=== PATIENT | female | born 1995 | race Caucasian/White ===

== ENCOUNTER 2016-09-14 17:20 | Emergency (ER) | payer OTHER ==
[2016-09-14] MEDS ORDERED: GI COCKTAIL 50ML BTL(HYOSCYAMINE/MAALOX/LIDOCAINE VISCOUS)(1:3:1) As Ordered ONE (18:04)
[2016-09-14 18:22] LABS: BASO % 0.2 % (0.0-1.0); EOS # 0.1 K/mm3 (0.0-0.50); EOS % 0.5 % (0.0-3.0); LARGE UNSTAINED CELL # 0.1 K/mm3 (0.0-0.4); LARGE UNSTAINED CELL % 0.9 % (0.0-4.0); LYMPH # 0.5 K/mm3 (1.5-6.5); LYMPH % 4.2 % (24.0-44.0); MEAN CORPUSCULAR HEMOGLOBIN 30.5 pg (27.0-33.0); MEAN CORPUSCULAR HGB CONC 35.1 g/dl (32.0-36.5); MONO # 0.5 K/mm3 (0.0-0.8); MONO % 3.9 % (0.0-5.0); NEUTROPHILS # 11.6 K/mm3 (1.8-7.7); NEUTROPHILS % 90.2 % (36.0-66.0); PLATELET COUNT, AUTOMATED 295 k/mm3 (150-450); RED CELL DISTRIBUTION WIDTH 11.7 % (11.5-14.5); WHITE BLOOD COUNT 12.8 K/mm3 (4.0-10.0)
--- NOTE | 2016-09-14 18:41 | REP ---
Chest x-ray: Two views: History: Central chest pain. Epigastric pain. No comparison studies. Findings: The lungs are well inflated and clear. Pleural angles are sharp. Heart size is normal. Pulmonary vasculature is not increased. There is a right cervical rib noted incidentally. No other bony abnormality is seen. Impression: Cervical rib noted on the right. Otherwise negative chest x-ray. Signed by Arjun Mishra MD 09/14/2016 07:28 P
[2016-09-14 18:44] LABS: ALBUMIN 4.6 GM/DL (3.2-5.2); ALBUMIN/GLOBULIN RATIO 1.28 (1.00-1.93); ALKALINE PHOSPHATASE 66 U/L (45-117); ALT/SGPT 35 U/L (12-78); ANION GAP 12 MEQ/L (8-16); AST/SGOT 20 U/L (15-37); BILIRUBIN,DIRECT 0.2 MG/DL (0.0-0.2); BILIRUBIN,TOTAL 0.8 MG/DL (0.2-1.0); BLOOD UREA NITROGEN 20 MG/DL (7-18); CALCIUM LEVEL 9.5 MG/DL (8.5-10.1); CARBON DIOXIDE LEVEL 23 MEQ/L (21-32); CHLORIDE LEVEL 105 MEQ/L (98-107); CREATININE FOR GFR 0.79 MG/DL (0.55-1.02); GLUCOSE, FASTING 91 MG/DL (70-105); SODIUM LEVEL 140 MEQ/L (136-145); TOTAL PROTEIN 8.2 GM/DL (6.4-8.2)
--- NOTE | 2016-09-14 19:08 | EDDOCDS ---
Nurse's Notes [facility] Name: Sandra Olson Age: 20 yrs Sex: Female : 1995 Arrival Date: 09/14/2016 Time: 17:20 Bed TR8 Private MD: NO PRIMARY PHYSICIAN, . Diagnosis: Other chest pain-reproducible Presentation: 09/14 17:25 Presenting complaint: Patient states: Chest pain for past several months. Today started ld5 feeling worse and reports tingling to hands and feet. Adult Sepsis Screening: The patient does not have new or worsening altered mentation. Patient's respiratory rate is less than 22. Systolic blood pressure is greater than 100. Patient has a qSOFA score of 0- Negative Sepsis Screen. Suicide/Homicide risk assessment- the patient denies having any suicidal and/or homicidal ideations and does not present with any other emotional, behavioral or mental health complaints. Status: Patient is not a policy service coordinator or dependent. Transition of care: patient was not received from another setting of care. 17:25 Acuity: SERA Level 3 ld5 17:25 Method Of Arrival: Walkin/Carried/Asstd ld5 Triage Assessment: 17:27 General: Appears in no apparent distress. Pain: Location: anterior aspect of left upper ld5 chest and left breast Pain currently is 4 out of 10 on a pain scale. At worst was 6 out of 10 on a pain scale. Is prior to today pt was experiencing sudden onset of the left-sided chest pain. Today pain became more constant. HIV screening NA for this visit Offered previously. Neurological: Level of Consciousness is awake, alert, Reports tingling to hands and feet. Respiratory: Airway is patent Respiratory effort is even, unlabored. 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 none - PMHx: none; - PSHx: wisdom teeth removed; - Social history: Smoking status: Patient states was never smoker of tobacco. No barriers to communication noted, The patient speaks fluent Nepali, Speaks appropriately for age. - Family history: Not pertinent. - : The pt / caregiver states he / she is not on anticoagulants. Home medication list is obtained from the patient. - Exposure Risk Screening:: None identified. Screenin:05 Screening information is obtained from the patient. Fall risk: No risks identified. cz Assistance ADL's: requires no assistance with activities of daily living. Abuse/DV Screen: The patient / caregiver reports he/she is: not in a situation that causes fear, pain or injury. Nutritional screening: No deficits noted. Advance Directives: Currently, there is no health care proxy. There is no active DNR order. There is no living will. There is no Power of Oxygraph Operator. Advance directive information has not previously been placed in an [facility] medical record. Further advance directive information is declined. home support is adequate. Assessment: 19:05 Reassessment: Patient appears in no apparent distress at this time. Patient states cz feeling better. Vital Signs: 17:22 BP 133 / 80; Pulse 124; Resp 20; Temp 96.7; Pulse Ox 100% ; Weight 63.5 kg; Height 5 elp ft. 1 in. (154.94 cm); Pain 3/10; 19:07 BP 105 / 64; Pulse 94; Resp 16; Temp 99.2(T); Pulse Ox 95% on R/A; cz 17:22 Body Mass Index 26.45 (63.50 kg, 154.94 cm) [facility] Vitals: 17:22 Log In Time: September 14, 2016 at 17:20. [facility] ED Course: 17:22 Patient visited by Melany Gould PCA. elp 17:22 NO PRIMARY PHYSICIAN, . is Private Physician. elp 17:22 Patient moved to Waiting elp 17:23 Patient visited by Melany Gould PCA. elp 17:23 Patient moved to Pre RCE elp 17:27 Triage Initiated ld5 17:29 Patient visited by Kiki Herr RN. ld5 17:29 Patient moved to Triage 2 ld5 17:34 [facility] Wil[facility] ar2 17:34 James Flood MD is Attending Physician. ar2 17:43 Patient visited by Alcira Hoffman PCA. jb5 17:43 EKG done. (by ED staff). Reviewed by Dorian Wilkinson PA-C. jb5 17:48 Patient visited by Dorian Wilkinson PA-C. ar2 18:10 Patient moved to TR1 jb5 18:10 Troponin Sent. jb5 18:10 D-Dimer Quant Sent. jb5 18:10 Lipase Sent. jb5 18:10 Liver Profile Sent. jb5 18:10 MED Profile Sent. jb5 18:10 CBC with Diff Sent. jb5 18:35 Patient name changed from Sandra\S\\S\Wesley\S\ to Sandra\S\ \S\Wesley. EDMS 18:36 [facility] Payment Agreement was scanned into [employer] and attached to record. zo 18:49 Patient moved to PR cjh 18:57 [facility] is Referral Physician. ar2 19:04 Patient moved to TR8 cz 19:05 The patient / caregiver is instructed regarding the plan of care and ED course. cz 19:05 No IV's were initiated during this patient's visit. No procedures done that require cz assistance. Administered Medications: 18:07 Drug: GI Cocktail - (Alum-Mag Hydroxide-Simeth Suspension 225 mg-200 mg-25 mg/5 mL 30 ml6 ml, Lidocaine Liquid 2 % 10 ml, Hyoscyamine Liquid 10 ml) Route: PO; Order Results: Lab Order: CBC with Diff; SPEC'M 09/14/16 18:09 Test: WHITE BLOOD COUNT; Value: 12.8; Range: 4.0-10.0; Abnormal: Above high normal; Units: K/mm3; Status: F Test: RED BLOOD COUNT; Value: 4.97; Range: 4.00-5.40; Units: M/mm3; Status: F Test: HEMOGLOBIN; Value: 15.2; Range: 12.0-16.0; Units: g/dl; Status: F Test: HEMATOCRIT; Value: 43.2; Range: 36.0-47.0; Units: %; Status: F Test: MEAN CORPUSCULAR VOLUME; Value: 87.0; Range: 80.0-96.0; Units: fl; Status: F Test: MEAN CORPUSCULAR HEMOGLOBIN; Value: 30.5; Range: 27.0-33.0; Units: pg; Status: F Test: MEAN CORPUSCULAR HGB CONC; Value: 35.1; Range: 32.0-36.5; Units: g/dl; Status: F Test: RED CELL DISTRIBUTION WIDTH; Value: 11.7; Range: 11.5-14.5; Units: %; Status: F Test: PLATELET COUNT, AUTOMATED; Value: 295; Range: 150-450; Units: k/mm3; Status: F Test: NEUTROPHILS %; Value: 90.2; Range: 36.0-66.0; Abnormal: Above high normal; Units: %; Status: F Test: LYMPH %; Value: 4.2; Range: 24.0-44.0; Abnormal: Below low normal; Units: %; Status: F Test: MONO %; Value: 3.9; Range: 0.0-5.0; Units: %; Status: F Test: EOS %; Value: 0.5; Range: 0.0-3.0; Units: %; Status: F Test: BASO %; Value: 0.2; Range: 0.0-1.0; Units: %; Status: F Test: LARGE UNSTAINED CELL %; Value: 0.9; Range: 0.0-4.0; Units: %; Status: F Test: NEUTROPHILS #; Value: 11.6; Range: 1.8-7.7; Abnormal: Above high normal; Units: K/mm3; Status: F Test: LYMPH #; Value: 0.5; Range: 1.5-6.5; Abnormal: Below low normal; Units: K/mm3; Status: F Test: MONO #; Value: 0.5; Range: 0.0-0.8; Units: K/mm3; Status: F Test: EOS #; Value: 0.1; Range: 0.0-0.50; Units: K/mm3; Status: F Test: BASO #; Value: 0.0; Range: 0.0-0.2; Units: K/mm3; Status: F Test: LARGE UNSTAINED CELL #; Value: 0.1; Range: 0.0-0.4; Units: K/mm3; Status: F Lab Order: [facility] Profile; [facility] 09/14/16 18:10 Test: GLUCOSE, FASTING; Value: 91; Range: 70-105; Units: MG/DL; Status: F Test: BLOOD UREA NITROGEN; Value: 20; Range: 7-18; Abnormal: Above high normal; Units: MG/DL; Status: F Test: CREATININE FOR GFR; Value: 0.79; Range: 0.55-1.02; Units: MG/DL; Status: F Test: SODIUM LEVEL; Value: 140; Range: 136-145; Units: MEQ/L; Status: F Test: POTASSIUM SERUM; Value: 4.0; Range: 3.5-5.1; Units: MEQ/L; Status: F Test: CHLORIDE LEVEL; Value: 105; Range: 98-107; Units: MEQ/L; Status: F Test: CARBON DIOXIDE LEVEL; Value: 23; Range: 21-32; Units: MEQ/L; Status: F Test: ANION GAP; Value: 12; Range: 8-16; Units: MEQ/L; Status: F Test: CALCIUM LEVEL; Value: 9.5; Range: 8.5-10.1; Units: MG/DL; Status: F Lab Order: Liver Profile; 09/14/16 18:10 Test: AST/SGOT; Value: 20; Range: 15-37; Units: U/L; Status: F Test: ALT/SGPT; Value: 35; Range: 12-78; Units: U/L; Status: F Test: ALKALINE PHOSPHATASE; Value: 66; Range: 45-117; Units: U/L; Status: F Test: BILIRUBIN,TOTAL; Value: 0.8; Range: 0.2-1.0; Units: MG/DL; Status: F Test: BILIRUBIN,DIRECT; Value: 0.2; Range: 0.0-0.2; Units: MG/DL; Status: F Test: TOTAL PROTEIN; Value: 8.2; Range: 6.4-8.2; Units: GM/DL; Status: F Test: ALBUMIN; Value: 4.6; Range: 3.2-5.2; Units: GM/DL; Status: F Test: ALBUMIN/GLOBULIN RATIO; Value: 1.28; Range: 1.00-1.93; Status: F Lab Order: Lipase; '09/14/16 18:10 Test: LIPASE; Value: 153; Range: 73-393; Units: U/L; Status: F Lab Order: D-Dimer Quant; 09/14/16 18:09 Test: D-DIMER QUANT; Value: < 270.0; Range: <500; Units: ng/ml; Status: F Lab Order: Troponin; 09/14/16 18:10 Test: TROPONIN I; Value: < 0.02; Range: < 0.10; Units: NG/ML; Status: F Test Note: ; Troponin I Reference Interval for Six Degrees Group LOCI: 99th Percentile= 0.00-0.045 ng/ml Risk Stratification: <= 0.10 ng/ml Decreased Risk for Adverse Clinical Events. 0.10-1.50 ng/ml Increased Risk for Adverse Clinical Events. Evaluation of additional criterion and/or repeat testing in 2-6 hours is suggested to rule out myocardial damage. >= 1.50 ng/ml Indicative of Myocardial Injury. Outcome: 18:58 Discharge ordered by Provider. ar2 19:05 Discharge Assessment: Patient awake, alert and oriented x 3. No cognitive and/or cz functional deficits noted. Patient verbalized understanding of disposition instructions. patient administered narcotics - no. The following High Risk Discharge criteria are identified: None. Discharged to home ambulatory. Condition: stable. Discharge instructions given to patient, Instructed on discharge instructions, follow up and referral plans. medication usage, Demonstrated understanding of instructions, medications, Pt was receptive of discharge instructions/ teaching. Prescriptions given X 2. No special radiology studies were completed. Property :Personal belongings accompany Pt. 19:07 Patient left the ED. cz Signatures: Dispatcher [employer] EDMS Rene Paz, OUMAR RN cz Alcira Hoffman, CERTIFIED HYPERBARIC TECHNICIAN CERTIFIED HYPERBARIC TECHNICIAN jb5 Vinod Caceres Aaron, PARemigio PA-C ar2 Valentin Conklin RN RN ml6 Kiki Herr RN RN ld5 Gi Sands,OUMAR RN [facility] Melany Gould, CERTIFIED HYPERBARIC TECHNICIAN CERTIFIED HYPERBARIC TECHNICIAN elp MTDD
--- NOTE | 2016-09-14 19:08 | EDDOCDS ---
Physician Documentation [facility] Name: Sandra Olson Age: 20 yrs Sex: Female : 1995 Arrival Date: 09/14/2016 Time: 17:20 Bed TR8 Private MD: NO PRIMARY PHYSICIAN, . Disposition: 09/14/16 18:58 Discharged to Home/Self Care. Impression: Other chest pain - reproducible. - Condition is Stable. - Discharge Instructions: Nonspecific Chest Pain. - Prescriptions for Naprosyn 500 mg Oral Tablet - take 1 tablet by ORAL route 2 times per day take with food; 30 tablet. Prilosec 20 mg Oral Capsule - take 1 capsule by ORAL route once daily; 10 capsule. - Medication Reconciliation, Local Pharmacy Hours form. - Follow up: [facility]; When: Call to arrange an appointment; Reason: Recheck today's complaints, To establish care. Follow up: Emergency Department; When: As needed; Reason: Trouble breathing, Worsening of conditions. - Problem is new. - Symptoms have improved. Historical: - Allergies: oranges; - Home Meds: 1. none - PMHx: none; - PSHx: wisdom teeth removed; - Social history: Smoking status: Patient states was never smoker of tobacco. No barriers to communication noted, The patient speaks fluent Czech, Speaks appropriately for age. - Family history: Not pertinent. - : The pt / caregiver states he / she is not on anticoagulants. Home medication list is obtained from the patient. - Exposure Risk Screening:: None identified. 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 1 in. (154.94 cm); Pain 3/10; 19:07 BP 105 / 64; Pulse 94; Resp 16; Temp 99.2(T); Pulse Ox 95% on R/A; cz 17:22 Body Mass Index 26.45 (63.50 kg, 154.94 cm) elp MDM: 17:35 ECG WITH READING ER PHYS+CARDIAG ordered. EDMS 17:56 GI Cocktail - (Alum-Mag Hydroxide-Simeth 30 ml, Lidocaine 10 ml, Hyoscyamine 10 ml) PO ar2 once; Pre-mixed 50mL unit dose ordered. 17:57 Chest, 2 View (pa\E\lat) Ordered. EDMS 17:57 CBC with Diff Ordered. EDMS 17:57 MED Profile Ordered. EDMS 17:57 Liver Profile Ordered. EDMS 17:57 Lipase Ordered. EDMS 17:57 D-Dimer Quant Ordered. EDMS 17:57 Troponin Ordered. EDMS 18:31 Financial registration complete. zo 18:36 [facility] Payment Agreement was scanned into [employer] and attached to record. zo 18:51 CBC with Diff Reviewed. ar2 18:51 MED Profile Reviewed. ar2 18:51 Liver Profile Reviewed. ar2 18:51 Lipase Reviewed. ar2 18:51 D-Dimer Quant Reviewed. ar2 18:51 Troponin Reviewed. ar2 Administered Medications: 18:07 Drug: GI Cocktail - (Alum-Mag Hydroxide-Simeth Suspension 225 mg-200 mg-25 mg/5 mL 30 ml6 ml, Lidocaine Liquid 2 % 10 ml, Hyoscyamine Liquid 10 ml) Route: PO; Signatures: Dispatcher [employer] EDMS Rene Paz, OUMAR RN cz Vinod Caceres Aaron, PADarlinC PA-C ar2 Kiki Herr,RN RN ld5 Valentin Conklin RN ml6 The chart was reviewed and I authenticate all verbal orders and agree with the evaluation and treatment provided.Attachments: 18:36 [facility] Payment Agreement zo MTDD
--- NOTE | 2016-09-15 08:37 | ECGEPIP ---
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 Order Number: [id number] Reading MD: Chiquita Vidal Measurements Intervals [place] Rate: 101 P: 69 WV: 133 QRS: 72 QRSD: 70 T: 56 QT: 319 QTc: 415 Interpretive Statements SINUS TACHYCARDIA NONSPECIFIC T-WAVE ABNORMALITY ABNORMAL RHYTHM ECG NO PRIOR FOR COMPARISON Electronically Signed On 09-15-2016 8:36:56 EST by Chiquita Vidal
--- NOTE | 2016-09-18 09:44 | EDDOCDS ---
Nurse's Notes [facility] Name: Cathy Mandujano Age: 20 yrs Sex: Female : 1995 Arrival Date: 09/14/2016 Time: 17:20 Bed TR8 Private MD: NO PRIMARY PHYSICIAN, . Diagnosis: Other chest pain-reproducible Presentation: 09/14 17:25 Presenting complaint: Patient states: Chest pain for past several months. Today started ld5 feeling worse and reports tingling to hands and feet. Adult Sepsis Screening: The patient does not have new or worsening altered mentation. Patient's respiratory rate is less than 22. Systolic blood pressure is greater than 100. Patient has a qSOFA score of 0- Negative Sepsis Screen. Suicide/Homicide risk assessment- the patient denies having any suicidal and/or homicidal ideations and does not present with any other emotional, behavioral or mental health complaints. 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 Transition of care: patient was not received from another setting of care. 17:25 Acuity: SERA Level 3 ld5 17:25 Method Of Arrival: Walkin/Carried/Asstd ld5 Triage Assessment: 17:27 General: Appears in no apparent distress. Pain: Location: anterior aspect of left upper ld5 chest and left breast Pain currently is 4 out of 10 on a pain scale. At worst was 6 out of 10 on a pain scale. Is prior to today pt was experiencing sudden onset of the left-sided chest pain. Today pain became more constant. HIV screening NA for this visit Offered previously. Neurological: Level of Consciousness is awake, alert, Reports tingling to hands and feet. Respiratory: Airway is patent Respiratory effort is even, unlabored. 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 none - PMHx: none; - PSHx: wisdom teeth removed; - Social history: Smoking status: Patient states was never smoker of tobacco. No barriers to communication noted, The patient speaks fluent Urdu, Speaks appropriately for age. - Family history: Not pertinent. - : The pt / caregiver states he / she is not on anticoagulants. Home medication list is obtained from the patient. - Exposure Risk Screening:: None identified. Screenin:05 Screening information is obtained from the patient. Fall risk: No risks identified. cz Assistance ADL's: requires no assistance with activities of daily living. Abuse/DV Screen: The patient / caregiver reports he/she is: not in a situation that causes fear, pain or injury. Nutritional screening: No deficits noted. Advance Directives: Currently, there is no health care proxy. There is no active DNR order. There is no living will. There is no Power of Die Maker Bench Stamping. Advance directive information has not previously been placed in an [facility] medical record. Further advance directive information is declined. home support is adequate. Assessment: 19:05 Reassessment: Patient appears in no apparent distress at this time. Patient states cz feeling better. Vital Signs: 17:22 BP 133 / 80; Pulse 124; Resp 20; Temp 96.7; Pulse Ox 100% ; Weight 63.5 kg; Height 5 elp ft. 1 in. (154.94 cm); Pain 3/10; 19:07 BP 105 / 64; Pulse 94; Resp 16; Temp 99.2(T); Pulse Ox 95% on R/A; cz 17:22 Body Mass Index 26.45 (63.50 kg, 154.94 cm) [facility] Vitals: 17:22 Log In Time: September 14, 2016 at 17:20. [facility] ED Course: 17:22 Patient visited by Melany Gould PCA. elp 17:22 NO PRIMARY PHYSICIAN, . is Private Physician. elp 17:22 Patient moved to Waiting elp 17:23 Patient visited by Melany Gould PCA. elp 17:23 Patient moved to Pre RCE elp 17:27 Triage Initiated ld5 17:29 Patient visited by Kiki Herr RN. ld5 17:29 Patient moved to Triage 2 ld5 17:34 [facility] ar2 17:34 James Flood MD is Attending Physician. ar2 17:43 Patient visited by Alcira Hoffman PCA. jb5 17:43 EKG done. (by ED staff). Reviewed by Ankit Orellana PA-C. jb5 17:48 Patient visited by Ankit Orellana PA-C. ar2 18:10 Patient moved to TR1 jb5 18:10 Troponin Sent. jb5 18:10 D-Dimer Quant Sent. jb5 18:10 Lipase Sent. jb5 18:10 Liver Profile Sent. jb5 18:10 MED Profile Sent. jb5 18:10 CBC with Diff Sent. jb5 18:35 Patient name changed from Cathy\S\\S\Wesley\S\ to Cathy\S\ \S\Wesley. EDMS 18:36 [place] [place] was scanned into eigital and attached to record. zo 18:49 Patient moved to PR1 / 25 cjh 18:57 [facility] is Referral Physician. ar2 19:04 Patient moved to TR8 cz 19:05 The patient / caregiver is instructed regarding the plan of care and ED course. cz 19:05 No IV's were initiated during this patient's visit. No procedures done that require cz assistance. 19:28 Chest, 2 View (pa\E\lat) Returned. EDMS 07 08:39 EKG-ADULT Returned. EDMS 08:41 T-Sheet-- Draft Copy was scanned into eigital and attached to record. [facility] 12:37 ECG/EKG was scanned into eigital and attached to record. gb 12:37 Radiology Report was scanned into eigital and attached to record. gb Administered Medications: 09/14 18:07 Drug: GI Cocktail - (Alum-Mag Hydroxide-Simeth Suspension 225 mg-200 mg-25 mg/5 mL 30 ml6 ml, Lidocaine Liquid 2 % 10 ml, Hyoscyamine Liquid 10 ml) Route: PO; Order Results: Lab Order: CBC with Diff; SPEC'M 09/14/16 18:09 Test: WHITE BLOOD COUNT; Value: 12.8; Range: 4.0-10.0; Abnormal: Above high normal; Units: K/mm3; Status: F Test: RED BLOOD COUNT; Value: 4.97; Range: 4.00-5.40; Units: M/mm3; Status: F Test: HEMOGLOBIN; Value: 15.2; Range: 12.0-16.0; Units: g/dl; Status: F Test: HEMATOCRIT; Value: 43.2; Range: 36.0-47.0; Units: %; Status: F Test: MEAN CORPUSCULAR VOLUME; Value: 87.0; Range: 80.0-96.0; Units: fl; Status: F Test: MEAN CORPUSCULAR HEMOGLOBIN; Value: 30.5; Range: 27.0-33.0; Units: pg; Status: F Test: MEAN CORPUSCULAR HGB CONC; Value: 35.1; Range: 32.0-36.5; Units: g/dl; Status: F Test: RED CELL DISTRIBUTION WIDTH; Value: 11.7; Range: 11.5-14.5; Units: %; Status: F Test: PLATELET COUNT, AUTOMATED; Value: 295; Range: 150-450; Units: k/mm3; Status: F Test: NEUTROPHILS %; Value: 90.2; Range: 36.0-66.0; Abnormal: Above high normal; Units: %; Status: F Test: LYMPH %; Value: 4.2; Range: 24.0-44.0; Abnormal: Below low normal; Units: %; Status: F Test: MONO %; Value: 3.9; Range: 0.0-5.0; Units: %; Status: F Test: EOS %; Value: 0.5; Range: 0.0-3.0; Units: %; Status: F Test: BASO %; Value: 0.2; Range: 0.0-1.0; Units: %; Status: F Test: LARGE UNSTAINED CELL %; Value: 0.9; Range: 0.0-4.0; Units: %; Status: F Test: NEUTROPHILS #; Value: 11.6; Range: 1.8-7.7; Abnormal: Above high normal; Units: K/mm3; Status: F Test: LYMPH #; Value: 0.5; Range: 1.5-6.5; Abnormal: Below low normal; Units: K/mm3; Status: F Test: MONO #; Value: 0.5; Range: 0.0-0.8; Units: K/mm3; Status: F Test: EOS #; Value: 0.1; Range: 0.0-0.50; Units: K/mm3; Status: F Test: BASO #; Value: 0.0; Range: 0.0-0.2; Units: K/mm3; Status: F Test: LARGE UNSTAINED CELL #; Value: 0.1; Range: 0.0-0.4; Units: K/mm3; Status: F Lab Order: MED Profile; SPEC'M 09/14/16 18:10 Test: GLUCOSE, FASTING; Value: 91; Range: 70-105; Units: MG/DL; Status: F Test: BLOOD UREA NITROGEN; Value: 20; Range: 7-18; Abnormal: Above high normal; Units: MG/DL; Status: F Test: CREATININE FOR GFR; Value: 0.79; Range: 0.55-1.02; Units: MG/DL; Status: F Test: SODIUM LEVEL; Value: 140; Range: 136-145; Units: MEQ/L; Status: F Test: POTASSIUM SERUM; Value: 4.0; Range: 3.5-5.1; Units: MEQ/L; Status: F Test: CHLORIDE LEVEL; Value: 105; Range: 98-107; Units: MEQ/L; Status: F Test: CARBON DIOXIDE LEVEL; Value: 23; Range: 21-32; Units: MEQ/L; Status: F Test: ANION GAP; Value: 12; Range: 8-16; Units: MEQ/L; Status: F Test: CALCIUM LEVEL; Value: 9.5; Range: 8.5-10.1; Units: MG/DL; Status: F Lab Order: Liver Profile; [facility] 09/14/16 18:10 Test: AST/SGOT; Value: 20; Range: 15-37; Units: U/L; Status: F Test: ALT/SGPT; Value: 35; Range: 12-78; Units: U/L; Status: F Test: ALKALINE PHOSPHATASE; Value: 66; Range: 45-117; Units: U/L; Status: F Test: BILIRUBIN,TOTAL; Value: 0.8; Range: 0.2-1.0; Units: MG/DL; Status: F Test: BILIRUBIN,DIRECT; Value: 0.2; Range: 0.0-0.2; Units: MG/DL; Status: F Test: TOTAL PROTEIN; Value: 8.2; Range: 6.4-8.2; Units: GM/DL; Status: F Test: ALBUMIN; Value: 4.6; Range: 3.2-5.2; Units: GM/DL; Status: F Test: ALBUMIN/GLOBULIN RATIO; Value: 1.28; Range: 1.00-1.93; Status: F Lab Order: Lipase; [facility] 09/14/16 18:10 Test: LIPASE; Value: 153; Range: 73-393; Units: U/L; Status: F Lab Order: D-Dimer Quant; SPEC'M 09/14/16 18:09 Test: D-DIMER QUANT; Value: < 270.0; Range: <500; Units: ng/ml; Status: F Lab Order: Troponin; SPEC'M 09/14/16 18:10 Test: TROPONIN I; Value: < 0.02; Range: < 0.10; Units: NG/ML; Status: F Test Note: ; Troponin I Reference Interval for Siemens Amo LOCI: 99th Percentile= 0.00-0.045 ng/ml Risk Stratification: <= 0.10 ng/ml Decreased Risk for Adverse Clinical Events. 0.10-1.50 ng/ml Increased Risk for Adverse Clinical Events. Evaluation of additional criterion and/or repeat testing in 2-6 hours is suggested to rule out myocardial damage. >= 1.50 ng/ml Indicative of Myocardial Injury. 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 Epigastric pain.; ; No comparison studies.; ; Findings: The lungs are well inflated and clear. Pleural angles are sharp.; Heart size is normal. Pulmonary vasculature is not increased. There is a right; cervical rib noted incidentally. No other bony abnormality is seen.; ; Impression: Cervical rib noted on the right. Otherwise negative chest x-ray.; ; ; Signed by; Arjun Mishra MD 09/14/2016 07:28 P; Outcome: 18:58 Discharge ordered by Provider. ar2 19:05 Discharge Assessment: Patient awake, alert and oriented x 3. No cognitive and/or cz functional deficits noted. Patient verbalized understanding of disposition instructions. patient administered narcotics - no. The following High Risk Discharge criteria are identified: None. Discharged to home ambulatory. Condition: stable. Discharge instructions given to patient, Instructed on discharge instructions, follow up and referral plans. medication usage, Demonstrated understanding of instructions, medications, Pt was receptive of discharge instructions/ teaching. Prescriptions given X 2. No special radiology studies were completed. Property :Personal belongings accompany Pt. 19:07 Patient left the ED. cz Signatures: Dispatcher Med[employer] EDMS Rene Paz, RN RN cz Susy Chaudhari, Reg Reg gb Alcira Hoffman, ELEVATOR CONSTRUCTOR SUPERVISOR ELEVATOR CONSTRUCTOR SUPERVISOR jb5 Vinod Caceres Aaron, PA-C PA-C ar2 Valentin Conklin, UOMAR RN ml6 Kiki Herr,OUMAR RN ld5 Gi Sands,OUMAR OSEGUERA Melany Ruelas, ELEVATOR CONSTRUCTOR SUPERVISOR ELEVATOR CONSTRUCTOR SUPERVISOR mateop Chiquita Ly Chart Complete MTDD
--- NOTE | 2016-09-18 09:44 | EDDOCDS ---
Physician Documentation [facility] Name: Sandra Olson Age: 20 yrs Sex: Female : 1995 Arrival Date: 09/14/2016 Time: 17:20 Bed TR8 Private MD: NO PRIMARY PHYSICIAN, . Disposition: 09/14/16 18:58 Discharged to Home/Self Care. Impression: Other chest pain - reproducible. - Condition is Stable. - Discharge Instructions: Nonspecific Chest Pain. - Prescriptions for Naprosyn 500 mg Oral Tablet - take 1 tablet by ORAL route 2 times per day take with food; 30 tablet. Prilosec 20 mg Oral Capsule - take 1 capsule by ORAL route once daily; 10 capsule. - Medication Reconciliation, Local Pharmacy Hours form. - [facility] up: [facility]; When: Call to arrange an appointment; Reason: Recheck today's complaints, To establish care. Follow up: Emergency Department; When: As needed; Reason: Trouble breathing, Worsening of conditions. - Problem is new. - Symptoms have improved. Historical: - Allergies: oranges; - Home Meds: 1. none - PMHx: none; - PSHx: wisdom teeth removed; - Social history: Smoking status: Patient states was never smoker of tobacco. No barriers to communication noted, The patient speaks fluent Hebrew, Speaks appropriately for age. - Family history: Not pertinent. - : The pt / caregiver states he / she is not on anticoagulants. Home medication list is obtained from the patient. - Exposure Risk Screening:: None identified. 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 1 in. (154.94 cm); Pain 3/10; 19:07 BP 105 / 64; Pulse 94; Resp 16; Temp 99.2(T); Pulse Ox 95% on R/A; cz 17:22 Body Mass Index 26.45 (63.50 kg, 154.94 cm) elp MDM: 17:35 ECG WITH READING ER PHYS+CARDIAG ordered. EDMS 17:56 GI Cocktail - (Alum-Mag Hydroxide-Simeth 30 ml, Lidocaine 10 ml, Hyoscyamine 10 ml) PO ar2 once; Pre-mixed 50mL unit dose ordered. 17:57 Chest, 2 View (pa\E\lat) Ordered. EDMS 17:57 CBC with Diff Ordered. EDMS 17:57 MED Profile Ordered. EDMS 17:57 Liver Profile Ordered. EDMS 17:57 Lipase Ordered. EDMS 17:57 D-Dimer Quant Ordered. EDMS 17:57 Troponin Ordered. EDMS 18:31 Financial registration complete. zo 18:36 [facility] [place] Payment Agreement was scanned into TellMi and attached to record. zo 18:51 CBC with Diff Reviewed. ar2 18:51 MED Profile Reviewed. ar2 18:51 Liver Profile Reviewed. ar2 18:51 Lipase Reviewed. ar2 18:51 D-Dimer Quant Reviewed. ar2 18:51 Troponin Reviewed. ar2 09/15 08:41 T-Sheet-- Draft Copy was scanned into TellMi and attached to record. [facility] 12:37 ECG/EKG was scanned into TellMi and attached to record. 12:37 Radiology Report was scanned into TellMi and attached to record. gb Administered Medications: 09/14 18:07 Drug: GI Cocktail - (Alum-Mag Hydroxide-Simeth Suspension 225 mg-200 mg-25 mg/5 mL 30 ml6 ml, Lidocaine Liquid 2 % 10 ml, Hyoscyamine Liquid 10 ml) Route: PO; Signatures: Dispatcher MedHost EDMS Rene Paz RN RN cz Barnhardt, Gloria, Reg Reg gb Vinod Caceres Aaron, PADarlinC PA-C ar2 Kiki Herr RN RN ld5 Chiquita Ly Matthew RN ml6 The chart was reviewed and I authenticate all verbal orders and agree with the evaluation and treatment provided.Attachments: 18:36 [facility] Payment Agreement zo 09/15 08:41 T-Sheet-- Draft Copy [facility] 12:37 ECG/EKG gb Chart Complete MTDD
--- NOTE | 2016-09-18 09:44 | EDDOCDS ---
Physician Documentation [facility] Name: Sandra Olson Age: 20 yrs Sex: Female : 1995 Arrival Date: 09/14/2016 Time: 17:20 Bed TR8 Private MD: NO PRIMARY PHYSICIAN, . Disposition: 09/14/16 18:58 Discharged to Home/Self Care. Impression: Other chest pain - reproducible. - Condition is Stable. - Discharge Instructions: Nonspecific Chest Pain. - Prescriptions for Naprosyn 500 mg Oral Tablet - take 1 tablet by ORAL route 2 times per day take with food; 30 tablet. Prilosec 20 mg Oral Capsule - take 1 capsule by ORAL route once daily; 10 capsule. - Medication Reconciliation, Local Pharmacy Hours form. - Follow up: [facility]; When: Call to arrange an appointment; Reason: Recheck today's complaints, To establish care. Follow up: Emergency Department; When: As needed; Reason: Trouble breathing, Worsening of conditions. - Problem is new. - Symptoms have improved. Historical: - Allergies: oranges; - Home Meds: 1. none - PMHx: none; - PSHx: wisdom teeth removed; - Social history: Smoking status: Patient states was never smoker of tobacco. No barriers to communication noted, The patient speaks fluent Welsh, Speaks appropriately for age. - Family history: Not pertinent. - : The pt / caregiver states he / she is not on anticoagulants. Home medication list is obtained from the patient. - Exposure Risk Screening:: None identified. 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 1 in. (154.94 cm); Pain 3/10; 19:07 BP 105 / 64; Pulse 94; Resp 16; Temp 99.2(T); Pulse Ox 95% on R/A; cz 17:22 Body Mass Index 26.45 (63.50 kg, 154.94 cm) elp MDM: 17:35 ECG WITH READING ER PHYS+CARDIAG ordered. EDMS 17:56 GI Cocktail - (Alum-Mag Hydroxide-Simeth 30 ml, Lidocaine 10 ml, Hyoscyamine 10 ml) PO ar2 once; Pre-mixed 50mL unit dose ordered. 17:57 Chest, 2 View (pa\E\lat) Ordered. EDMS 17:57 CBC with Diff Ordered. EDMS 17:57 MED Profile Ordered. EDMS 17:57 Liver Profile Ordered. EDMS 17:57 Lipase Ordered. EDMS 17:57 D-Dimer Quant Ordered. EDMS 17:57 Troponin Ordered. EDMS 18:31 Financial registration complete. zo 18:36 [facility] [place] Payment Agreement was scanned into Podcast Ready and attached to record. zo 18:51 CBC with Diff Reviewed. ar2 18:51 MED Profile Reviewed. ar2 18:51 Liver Profile Reviewed. ar2 18:51 Lipase Reviewed. ar2 18:51 D-Dimer Quant Reviewed. ar2 18:51 Troponin Reviewed. ar2 09/15 08:41 T-Sheet-- Draft Copy was scanned into Podcast Ready and attached to record. [facility] 12:37 ECG/EKG was scanned into Pod[employer] Ready and attached to record. 12:37 Radiology Report was scanned into Podcast Ready and attached to record. gb Administered Medications: 09/14 18:07 Drug: GI Cocktail - (Alum-Mag Hydroxide-Simeth Suspension 225 mg-200 mg-25 mg/5 mL 30 ml6 ml, Lidocaine Liquid 2 % 10 ml, Hyoscyamine Liquid 10 ml) Route: PO; Signatures: Dispatcher MedHost EDMS Rene Paz RN RN cz Barnhardt, Gloria, Reg Reg gb Vinod Caceres Aaron, PADarlinC PA-C ar2 Kiki Herr RN RN ld5 Chiquita Ly Matthew RN ml6 The chart was reviewed and I authenticate all verbal orders and agree with the evaluation and treatment provided.Attachments: 18:36 [facility] Payment Agreement zo 09/15 08:41 T-Sheet-- Draft Copy [facility] 12:37 ECG/EKG gb Chart Complete MTDD
== END 2016-09-14 19:07 | disposition home or self-care (01) ==
LOC: M ED 17:20
DX: R07.89 Other chest pain (principal); R10.13 Epigastric pain; R94.31 Abnormal electrocardiogram [ECG] [EKG]

== ENCOUNTER 2017-04-05 18:33 | Inpatient (IN) | payer OTHER ==
[~2017-04-05] VITALS: Ht 154.9 cm; Wt 65.3 kg
[2017-04-05 19:41] LABS: MEAN CORPUSCULAR HEMOGLOBIN 30.8 pg (27.0-33.0); MEAN CORPUSCULAR HGB CONC 34.8 g/dl (32.0-36.5); MEAN CORPUSCULAR VOLUME 88.5 fl (80.0-96.0); RED CELL DISTRIBUTION WIDTH 12.4 % (11.5-14.5); WHITE BLOOD COUNT 15.4 K/mm3 (4.0-10.0)
[2017-04-05 19:53] LABS: CONTROL LINE HCG INT CTR LINE PRESENT
[2017-04-05 19:59] LABS: METHADONE URINE NEGATIVE (NEGATIVE)
[2017-04-05 20:11] LABS: ALBUMIN 4.4 GM/DL (3.2-5.2); ALBUMIN/GLOBULIN RATIO 1.16 (1.00-1.93); ALKALINE PHOSPHATASE 61 U/L (45-117); ALT/SGPT 42 U/L (12-78); ANION GAP 10 MEQ/L (8-16); AST/SGOT 19 U/L (15-37); BILIRUBIN,DIRECT 0.2 MG/DL (0.0-0.2); BILIRUBIN,TOTAL 0.6 MG/DL (0.2-1.0); BLOOD UREA NITROGEN 14 MG/DL (7-18); CALCIUM LEVEL 9.1 MG/DL (8.5-10.1); CARBON DIOXIDE LEVEL 26 MEQ/L (21-32); CHLORIDE LEVEL 105 MEQ/L (98-107); CREATININE FOR GFR 0.67 MG/DL (0.55-1.02); GLUCOSE, FASTING 76 MG/DL (70-105); POTASSIUM SERUM 3.7 MEQ/L (3.5-5.1); SODIUM LEVEL 141 MEQ/L (136-145); TOTAL PROTEIN 8.2 GM/DL (6.4-8.2)
[2017-04-05] MEDS ORDERED: hydrOXYzine 25 MG TAB PO PRN (21:30)
[2017-04-05] MEDS ORDERED: MAALOX 30 ML SUSP *UDC PO PRN (21:30)
[2017-04-05] MEDS ORDERED: MOM 30ML SUSPENSION UDC PO PRN (21:30)
[2017-04-05] MEDS ORDERED: ACETAMINOPHEN TAB 650MG DOSE (2X325MG) PO PRN (21:30)
[2017-04-05 22:00] VITALS: BP 126/86
[2017-04-05] MEDS ORDERED: EXCEDRIN MIGRAINE TABLET PO PRN (23:45)
[2017-04-06 06:39] VITALS: BP 112/65
[2017-04-06] MEDS: SERTRALINE HCL 50 MG TAB PO SCH (08:36)
[2017-04-06] MEDS ORDERED: hydrOXYzine 50 MG TAB PO PRN (12:15)
[2017-04-06 12:37] LABS: BASO % 0.3 % (0.0-1.0); EOS # 0.1 K/mm3 (0.0-0.50); EOS % 0.7 % (0.0-3.0); LARGE UNSTAINED CELL # 0.3 K/mm3 (0.0-0.4); LARGE UNSTAINED CELL % 2.4 % (0.0-4.0); LYMPH # 2.6 K/mm3 (1.5-6.5); LYMPH % 20.4 % (24.0-44.0); MEAN CORPUSCULAR HEMOGLOBIN 31.1 pg (27.0-33.0); MEAN CORPUSCULAR HGB CONC 35.1 g/dl (32.0-36.5); MEAN CORPUSCULAR VOLUME 88.8 fl (80.0-96.0); MONO # 0.7 K/mm3 (0.0-0.8); MONO % 6.4 % (0.0-5.0); NEUTROPHILS # 7.9 K/mm3 (1.8-7.7); NEUTROPHILS % 69.9 % (36.0-66.0); PLATELET COUNT, AUTOMATED 313 k/mm3 (150-450); RED CELL DISTRIBUTION WIDTH 12.4 % (11.5-14.5); WHITE BLOOD COUNT 11.3 K/mm3 (4.0-10.0)
[2017-04-06 12:53] LABS: ALBUMIN 4.2 GM/DL (3.2-5.2); ALBUMIN/GLOBULIN RATIO 1.27 (1.00-1.93); ALKALINE PHOSPHATASE 56 U/L (45-117); ALT/SGPT 37 U/L (12-78); ANION GAP 7 MEQ/L (8-16); AST/SGOT 18 U/L (15-37); BILIRUBIN,TOTAL 0.5 MG/DL (0.2-1.0); BLOOD UREA NITROGEN 17 MG/DL (7-18); CALCIUM LEVEL 9.7 MG/DL (8.5-10.1); CARBON DIOXIDE LEVEL 29 MEQ/L (21-32); CHLORIDE LEVEL 102 MEQ/L (98-107); CREATININE FOR GFR 0.65 MG/DL (0.55-1.02); GLUCOSE, FASTING 81 MG/DL (70-105); POTASSIUM SERUM 4.6 MEQ/L (3.5-5.1); SODIUM LEVEL 138 MEQ/L (136-145); TOTAL PROTEIN 7.5 GM/DL (6.4-8.2)
[2017-04-06 18:18] VITALS: BP 134/88
[2017-04-06] MEDS ORDERED: diphenhydrAMINE 50 MG CAP PO ONE (20:00)
--- NOTE | 2017-04-06 21:35 | ECGEPIP ---
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
[2017-04-06] MEDS: MIRTAZAPINE 15 MG TAB PO SCH (22:59)
--- NOTE | 2017-04-07 00:46 | MHHPEPDOC ---
[facility] History & Physical History and Physical DATE OF ADMISSION: Apr 05, 2017 at 21:25 LEGAL STATUS AT ADMISSION: 9.39 CHIEF COMPLAINT: Was brought by ex girlfriend to the ED after patient verbalized increasing depression and suicidal ideation. HISTORY OF THE PRESENT ILLNESS: Patient is a 21-year-old female, who has a history of cutting, who says "I think that I have depression and anxiety", was brought by her ex girlfriend to the ED after she expressed desire to end her life. She has had multiple psychosocial stressors, has been moving from one sister's home to another one, has pressure in school and ex girlfriend broke up with her recently. She says she thinks she started getting depressed on High School, se describes racing thoughts, increased heart rate, sweaty and shaky hands, forgets things easily, has decreased attention and concentration. 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 She reports a history of random shocks in her heart, she has been evaluated and she was told she had an anxiety attack. She has isolated, has lost motivation, she blames herself for multiple things, not sociable anymore. PSYCHIATRIC REVIEW OF SYSTEMS: Affective: Hopeless, helpless, unmotivated, anxious, sad Anxiety: High. Trauma: Mother abandoned her and her siblings at a very young age. Psychosis: Denies thought delusions and denies auditory and visual hallucinations. Personally: Needs further assesment. PAST PSYCHIATRIC HISTORY: Prior Psychiatric Disorder: She feels she has had anxiety and depression since high school. Outpatient Treatment: Denies. Suicidal/Self injurious: Denies. Psychotropic Medication History: Denies. ALLERGIES: Please see below. FAMILY PSYCHIATRIC HISTORY: She says her mother has the mind of a 13 year old, she believes she probably has a psychiatric disorder.. SOCIAL HISTORY: Early Relations/development: Abandoned by mother at an early age, grew up with father to whom she is very attached. Lived with him until age 14, because his GF and him thought she had called DSS on them. Sibling order: She has 4 full blooded siblings and six half siblings. She's the second youngest, she has a younger brother who recently graduated from Paternal relationships: Estranged from mother Education: College. 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 Legal: Denies. Martial: Not , no children. Economic: Denies financial problems, but has housing problems, she is not financially independent, has been living with different sisters. Supports: Father and ex girlfriend. Abuse/trauma: Abandoned and neglected by mother. SUBSTANCE ABUSE HISTORY: Denies. PAST MEDICAL/SURGICAL HISTORY: 1. H/O back pain. 2. Migraines. VITAL SIGNS: See below MENTAL STATUS EXAMINATION: General appearance: Patient is a 21-year old female, who is alert, cooperative, with good hygiene, good eye contact. Speech: Coherent. Thought processes: Intact. Thought content: Coherent. Abstract reasoning and computation: Fair. Description of associations: Good. Description of abnormal or psychotic thoughts: Doesn't endorse bizarre or psychotic thoughts/delusions/hallucinations. Judgment: Limited. Insight: Limited. Orientation: oriented x 3. Recent and remote memory: Fair. Attention span and concentration: Fair. Fund of knowledge: Fair. Mood: "Anxious." Affect: Sad/anxious. DIAGNOSES: 1. Adjustment disorder with depressed anxious mood. 2. Generalized anxiety disorder. 3. Borderline personality traits? ASSESSMENT: Patient is denying suicidal thoughts but has a history of cutting. this episode was triggered by breakup with girlfriend, which could have percy back memories of mother's abandonment. Patient needs hospitalization until stabilized. PROBLEM LIST: 1. Risk for suicide 2. Risk for self harm. 3. Anxiety 4. Depression 5. Ineffective coping INITIAL TREATMENT PLAN: 1. Patient was admitted on a 9.39 2. Complete history was obtained. 3. With patients permission, family will be contacted and database will be expanded. 4. Patients medication regimen will be reviewed and changed accordingly. 5. Patient will be provided with protected environment. 6. Patient will be treated with individual, group, and milieu therapies. 7. Patient will receive supportive psych-education. 8. Discharge planning will commence immediately. 9. Outpatient follow-up treatment will be strongly recommended. 10. The initial treatment plan will focus initially on: * Depression. * Risk for suicide. ESTIMATED LENGTH OF STAY: 5-7 DAYS. TIME SPENT COUNSELING AND COORDINATING INITIAL CARE: 60 minutes. Laboratory Data 24[facility] Labs Laboratory Tests 2 04/06/17 12:16: White Blood Count 11.3H, Red Blood Count 4.42, Hemoglobin 13.7, Hematocrit 39.2 , Mean Corpuscular Volume 88.8, Mean Corpuscular Hemoglobin 31.1, Mean Corpuscular Hemoglobin Concent 35.1, Red Cell Distribution Width 12.4, Platelet Count 313, Neutrophils (%) (Auto) 69.9H, Lymphocytes (%) (Auto) 20.4L, Monocytes (%) (Auto) 6.4H, Eosinophils (%) (Auto) 0.7, Basophils (%) (Auto) 0.3 , Neutrophils # (Auto) 7.9H, Lymphocytes # (Auto) 2.6, Monocytes # (Auto) 0.7, Eosinophils # (Auto) 0.1, Basophils # (Auto) 0.0, Large Unclassified Cells % 2.4 , Large Unclassified Cells # 0.3, Anion Gap 7L, Blood Urea Nitrogen 17, Creatinine 0.65, Sodium Level 138, Potassium Level 4.6#, Chloride Level 102, Carbon Dioxide Level 29, Calcium Level 9.7, Aspartate Amino Transf (AST/SGOT) 18 , Alanine Aminotransferase (ALT/SGPT) 37, Alkaline Phosphatase 56, Total Bilirubin 0.5, Total Protein 7.5, Albumin 4.2, Albumin/Globulin Ratio 1.27 04/06/17 16:45: Urine Appearance CLEAR, Urine Color YELLOW, Urine pH 6.0, Urine Specific [place] 1.024, Urine Protein NEGATIVE, Urine Glucose (UA) NEGATIVE, Urine Ketones NEGATIVE, Urine Urobilinogen 2.0H, Urine Bilirubin NEGATIVE, Urine Leukocyte Esterase NEGATIVE, Urine Blood 1+H, Urine Nitrite NEGATIVE, Urine WBC (Auto) 0, Urine RBC (Auto) 5H, Urine Hyaline Casts (Auto) 0, Urine Bacteria ( Auto) NEGATIVE, Urine Squamous Epithelial Cells 0, Urine Mucus (Auto) SMALL, Urine Sperm (Auto) CBC/BMP Laboratory Tests 04/06/17 12:16 Red Blood Count 4.42, Mean Corpuscular Volume 88.8, Mean Corpuscular Hemoglobin 31.1, Mean Corpuscular Hemoglobin Concent 35.1, Red Cell Distribution Width 12.4 , Neutrophils (%) (Auto) 69.9 H, Lymphocytes (%) (Auto) 20.4 L, Monocytes (%) ( Auto) 6.4 H, Eosinophils (%) (Auto) 0.7, Basophils (%) (Auto) 0.3, Neutrophils # (Auto) 7.9 H, Lymphocytes # (Auto) 2.6, Monocytes # (Auto) 0.7, Eosinophils # (Auto) 0.1, Basophils # (Auto) 0.0, Calcium Level 9.7, Aspartate Amino Transf ( AST/SGOT) 18, Alanine Aminotransferase (ALT/SGPT) 37, Alkaline Phosphatase 56, Total Bilirubin 0.5, Total Protein 7.5, Albumin 4.2 Medications No Active Prescriptions or Reported Meds Allergies Coded Allergies: No Known Allergies (Unverified , 04/05/17) BENIGNO VALDEZ MD Apr 07, 2017 00:46
[2017-04-07 06:10] VITALS: BP 134/64
[2017-04-07] MEDS: SERTRALINE HCL 50 MG TAB PO SCH (09:23)
[2017-04-07 11:38] LABS: BASO % 0.5 % (0.0-1.0); EOS # 0.2 K/mm3 (0.0-0.50); LARGE UNSTAINED CELL # 0.2 K/mm3 (0.0-0.4); LARGE UNSTAINED CELL % 2.2 % (0.0-4.0); LYMPH % 18.9 % (24.0-44.0); MEAN CORPUSCULAR HEMOGLOBIN 31.5 pg (27.0-33.0); MEAN CORPUSCULAR HGB CONC 35.2 g/dl (32.0-36.5); MEAN CORPUSCULAR VOLUME 89.5 fl (80.0-96.0); MONO # 0.7 K/mm3 (0.0-0.8); MONO % 6.9 % (0.0-5.0); NEUTROPHILS # 6.7 K/mm3 (1.8-7.7); NEUTROPHILS % 69.6 % (36.0-66.0); PLATELET COUNT, AUTOMATED 296 k/mm3 (150-450); RED CELL DISTRIBUTION WIDTH 12.6 % (11.5-14.5); WHITE BLOOD COUNT 9.6 K/mm3 (4.0-10.0)
[2017-04-07 18:26] VITALS: BP 132/80
[2017-04-07] MEDS: MIRTAZAPINE 15 MG TAB PO SCH (23:02)
--- NOTE | 2017-04-08 01:44 | HPE ---
DATE OF ADMISSION: 04/05/2017 HISTORY OF PRESENT ILLNESS: Please refer to psychiatric history and evaluation for further details on this admission. This examination and history is intended for medical issues, which may need treatment, followup or consult on this 21-year-old female. ALLERGIES: No known allergies. PRIMARY CARE PROVIDER: None. SOCIAL HISTORY: She is single. Ethyl alcohol (EtOH) few times a month. Smokes none. Recreational drug use: None. PAST MEDICAL HISTORY: Negative. PAST SURGICAL HISTORY: [place] teeth extraction. HOME MEDICATIONS: None. FAMILY HISTORY: Noncontributory. EKG sinus rhythm with sinus arrhythmia, rate 67. LABORATORY STUDIES: WBC 15.4, hemoglobin 13.6, hematocrit 39.2. Electrolytes were normal. BUN 17, creatinine 0.47. Toxicology negative. REVIEW OF SYSTEMS: 10-system review was done, was unremarkable. PHYSICAL EXAMINATION: 21-year-old cooperative female in no acute distress. Height 61 inches, weight 44.8 kg, body mass index (BMI) 27. Patient is alert and oriented times three. Pupils equal and react to light. Extraocular muscles intact. Cornea and sclerae clear. Conjunctivae were normal. No facial asymmetry. Pharynx, tongue and gums pink and moist. Tongue is midline. Neck is supple without lymphadenopathy. No thyromegaly, no goiter. Chest clear to auscultation without wheeze or retraction. Heart is regular. Abdomen is benign. Bowel sounds positive. Genitourinary/rectal: Not done. Extremities: Show equal strength, full range of motion. No cyanosis, clubbing or edema. Peripheral pulses equal and palpable bilaterally. Skin is warm and dry. IMPRESSION/PLAN: Psychiatric plan per psychiatry. No acute medical issues.
[2017-04-08 06:42] VITALS: BP 112/75
[2017-04-08] MEDS: SERTRALINE HCL 50 MG TAB PO SCH (08:41)
[2017-04-08] MEDS ORDERED: SERT50TA PO (09:52)
[2017-04-08] MEDS ORDERED: MIRT15TA3 PO (09:52)
--- NOTE | 2017-04-08 19:55 | MHIPN ---
DATE: 04/07/2017 21-year-old female with history of: 1. Adjustment disorder with depressed and anxious mood. 2. Generalized anxiety disorder. 3. Borderline personality traits. SUBJECTIVE: The patient reports she feels better. She slept well. She says that she got swollen yesterday. Initially she thought it was a reaction to Zoloft, but then she realized that she gets like that when the weather is hot and humid. She says that she gets rashes, especially in her thighs. Regarding her mental health issues, she says that she becomes anxious when she attends groups and she has to share experiences. She says that she feels a little bit sleepy, but she knows it is because of the medication, she says that she slept pretty well after she took Remeron. OBJECTIVE: The patient is alert, pleasant and cooperative, oriented times three. Her thought process is intact. Her thought content is goal-directed, her speech is coherent. She denies thought delusions, hallucinations, suicidal or homicidal ideation. Her memory is intact, attention and concentration are good. Abstract thinking and computation are good, insight and judgment are fair, impulse control is good. ASSESSMENT: The patient is responding well to medication, yesterday it was ordered a CBC with differential because the initial CBC with differential had white blood cell count of 15.4, then the second one had a white blood cell count of 11.3 and eventually the one from yesterday was 9.6. A urinalysis was ordered and it was observed in urine that she had 1+ blood, she has denied being on her period. Today she has 1+ of urine bacteria and she has a small amount of amorphous sediment. Will consult tomorrow with EMILEE Zepead if it is necessary to start her medications, but it seems unnecessary as her white blood cell count has decreased. She will continue with the same psychiatric medications, will be encouraged to attend groups and probably will be able to be discharged around Saturday or Saturday this week. Will followup.
--- NOTE | 2017-04-08 22:17 | MHDSPDOC ---
[facility] Discharge Summary Discharge Summary DATE OF ADMISSION: Apr 05, 2017 at 21:25 DATE OF DISCHARGE: Apr 08, 2017 at 13:26 DISCHARGE DIAGNOSES: 1. Adjustment disorder with depressed and anxious mood. 2. Generalized anxiety disorder. 3. Borderline personality traits. REASON FOR ADMISSION: Patient is a 21-year-old female, who has a history of cutting, who says "I think that I have depression and anxiety", was brought by her ex girlfriend to the ED after she expressed desire to end her life. She has had multiple psychosocial stressors, has been moving from one sister's home to another one, has pressure in school and ex girlfriend broke up with her recently. She says she thinks she started getting depressed on High School, se describes racing thoughts, increased heart rate, sweaty and shaky hands, forgets things easily, has decreased attention and concentration. 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 She reports a history of random shocks in her heart, she has been evaluated and she was told she had an anxiety attack. She has isolated, has lost motivation, she blames herself for multiple things, not sociable anymore. CONSULTANTS INVOLVED: None TREATMENT AND PROGRESS ON THE UNIT : Patient was started on Zoloft 50 milligrams because she also expressed she had been feeling very anxious, had gone to the Emergency Room for chest tightness and palpitations and she was told she had anxiety attacks. She had a history of cutting and reacted with depression after breakup with ex girlfriend, although her ex was always supportive and remained on good termes, because they were friends since childhood. She also was started on Rmeron 15 milligrams for sleep, received a dose of benadryl 50 milligrams at night on Saturday night because she had swollen hands but later on she said she becomes swollen and develops a rash when is hot and humid. HOSPITAL COURSE: patient had a good response to medications, was albe to sleep and this was a great relief for her because she had not been sleeping. Attended groups, related to other patients and was able to learn coping skills. DISCHARGE ASSESSMENT: patient was not in danger to self or others at the time of discharge, she was not suicidal, not homicidal and not psychotic. She was discharged to her ex girlfriend, who came to pick her up and has shown support to the patient. MENTAL STATUS EXAMINATION ON DISCHARGE: Patient is a 21-year old female, who is alert, oriented x 3, cooperative with interview, pleasant. Speech is Normal. Language skills are Intact. Thought processes including: Intact. Thought content: Coherent, goal directed. Abstract reasoning, and computation: Good. Description of associations: Good. Description of abnormal or psychotic thoughts: Denies suicidal or homicidl ideation, denies thought delusions, denies auditory or visual hallucinations. Judgment: Improved. Insight: Improved. Orientation to Oriented x 3. Recent and remote memory: Fair. Attention span and concentration: Fair. Language: Normal. Fund of knowledge: Fair. Mood: "Happy". Affect: Euthymic. MEDICATIONS ON DISCHARGE: - Zoloft 50 mgs for depression and anxiety. - Remeron 15 milligrams for insomnia. PLAN/FOLLOWUP ARRANGEMENTS: Medical * Medical Follow Up [facility]- Dr. Mark * Date Apr 12, 2017 * Time 11:00 * Address of Clinic or Practice [address] [place] [address] * * Mental Health Appt 1 [facility] Established With This Provider No * Therapist Braxton * Date Apr 11, 2017 * Time 15:30 * Address of Clinic or Practice [facility] [place]- [facility] * The amount of time spent in the coordination of care for this patient was approximately 45 minutes. Vital Signs/I&Os Vital Signs Date Time Temp Pulse Resp B/P (MAP) Pulse Ox O2 Delivery O2 Flow Rate FiO2 04/08/17 06:42 97.0 77 18 112/75 (87) 04/06/17 06:39 Room Air 04/05/17 22:00 97 Medications Scheduled Mirtazapine (Mirtazapine) 15 Mg Tab, 15 MG PO QHS for MOOD/INSOMNIA, #7 Sertraline Hcl (Sertraline HCl) 50 Mg Tab, 50 MG PO QAM for MOOD, #7 Allergies Coded Allergies: No Known Allergies (Unverified , 04/05/17) BENIGNO VALDEZ MD Apr 08, 2017 22:17
== END 2017-04-08 13:26 | disposition home or self-care (01) | DRG 755 ==
LOC: M ED 18:33 → M ED INP 21:25 → M PSY 22:00
PROVIDERS: ADMIT Psychiatry & Neurology Psychiatry; ATTEND Psychiatry & Neurology Psychiatry
DX: F43.23 Adjustment disorder with mixed anxiety and depressed mood (principal); F41.1 Generalized anxiety disorder; F60.3 Borderline personality disorder; Z91.5 Personal history of self-harm; Z79.899 Other long term (current) drug therapy

== ENCOUNTER 2017-04-24 17:36 | Emergency (ER) | payer OTHER ==
[~2017-04-24] VITALS: Ht 154.9 cm; Wt 66.3 kg
[~2017-04-24 17:36] MED LIST: MIRT15TA3 PO; SERT50TA PO
[2017-04-24 18:31] LABS: MEAN CORPUSCULAR HEMOGLOBIN 32.1 pg (27.0-33.0); MEAN CORPUSCULAR HGB CONC 36.2 g/dl (32.0-36.5); MEAN CORPUSCULAR VOLUME 88.9 fl (80.0-96.0); RED CELL DISTRIBUTION WIDTH 12.3 % (11.5-14.5); WHITE BLOOD COUNT 8.7 K/mm3 (4.0-10.0)
[2017-04-24 19:02] LABS: CONTROL LINE HCG INT CTR LINE PRESENT
[2017-04-24 19:20] LABS: ALBUMIN/GLOBULIN RATIO 1.21 (1.00-1.93); ALKALINE PHOSPHATASE 51 U/L (45-117); ALT/SGPT 20 U/L (12-78); ANION GAP 11 MEQ/L (8-16); AST/SGOT 16 U/L (15-37); BILIRUBIN,DIRECT < 0.1 MG/DL (0.0-0.2); BILIRUBIN,TOTAL 0.3 MG/DL (0.2-1.0); BLOOD UREA NITROGEN 11 MG/DL (7-18); CALCIUM LEVEL 8.9 MG/DL (8.5-10.1); CARBON DIOXIDE LEVEL 25 MEQ/L (21-32); CHLORIDE LEVEL 109 MEQ/L (98-107); CREATININE FOR GFR 0.64 MG/DL (0.55-1.02); GLUCOSE, FASTING 108 MG/DL (70-105); POTASSIUM SERUM 3.6 MEQ/L (3.5-5.1); SODIUM LEVEL 145 MEQ/L (136-145); TOTAL PROTEIN 7.3 GM/DL (6.4-8.2)
[2017-04-24 19:37] VITALS: BP 146/94
[2017-04-24 19:40] LABS: METHADONE URINE NEGATIVE (NEGATIVE)
== END 2017-04-24 19:58 | disposition home or self-care (01) ==
LOC: M ED 17:36
DX: F32.9 Major depressive disorder, single episode, unspecified (principal)

== ENCOUNTER 2017-05-11 20:16 | Emergency (ER) | payer OTHER ==
[~2017-05-11] VITALS: Ht 154.9 cm; Wt 63.6 kg
[2017-05-11 20:17] VITALS: BP 144/83
== END 2017-05-12 00:03 | disposition left against medical advice (07) ==
LOC: M ED 20:16
DX: R42 Dizziness and giddiness (principal); Z53.21 Procedure and treatment not carried out due to patient leaving prior to being seen by health care provider

== ENCOUNTER 2017-06-28 23:06 | Emergency (ER) | payer OTHER ==
[~2017-06-28] VITALS: Ht 154.9 cm; Wt 68.2 kg
[2017-06-28 23:06] VITALS: BP 137/99
== END 2017-06-29 03:16 | disposition left against medical advice (07) ==
LOC: M ED 23:06
DX: S39.92XA Unspecified injury of lower back, initial encounter (principal); X58.XXXA Exposure to other specified factors, initial encounter; Y92.9 Unspecified place or not applicable; Y93.9 Activity, unspecified; Y99.9 Unspecified external cause status; Z53.21 Procedure and treatment not carried out due to patient leaving prior to being seen by health care provider

== ENCOUNTER 2017-07-03 13:22 | Emergency (ER) | payer OTHER ==
[~2017-07-03] VITALS: Ht 154.9 cm; Wt 146.0 kg
[2017-07-03] MEDS ORDERED: ROBA750T4 PO (15:32)
[2017-07-03] MEDS ORDERED: NAPR500T3 PO (15:32)
[2017-07-03] MEDS ORDERED: VALI5TAB PO (15:32)
[2017-07-03] MEDS ORDERED: ACET30TAB PO (15:32)
[2017-07-03 15:53] VITALS: BP 113/65
--- NOTE | 2017-07-03 16:02 | REP ---
THORACIC SPINE: AP and lateral views of the thoracic spine are performed. There is no compression fracture or malalignment with normal thoracic kyphosis. Disc spaces are well preserved. Posterior elements are intact. IMPRESSION: No fracture or dislocation. Signed by Reinaldo Elias MD 07/03/2017 07:47 P
--- NOTE | 2017-07-03 16:03 | REP ---
LUMBOSACRAL SPINE SERIES: Five views of the lumbosacral spine are performed. There is no fracture or dislocation. There is no spondylolysis or spondylolisthesis. There is normal lumbar lordosis. There is no disc space narrowing. The posterior elements are intact. There is slight curvature toward the left. IMPRESSION: No fracture or dislocation. Signed by Reinaldo Elias MD 07/03/2017 07:47 P
== END 2017-07-03 16:06 | disposition home or self-care (01) ==
LOC: M ED 13:22
DX: S39.012A Strain of muscle, fascia and tendon of lower back, initial encounter (principal); X50.0XXA Overexertion from strenuous movement or load, initial encounter; Y92.129 Unspecified place in nursing home as the place of occurrence of the external cause; Y93.F9 Activity, other caregiving; Y99.0 Civilian activity done for income or pay; F41.9 Anxiety disorder, unspecified; F32.9 Major depressive disorder, single episode, unspecified; Z79.899 Other long term (current) drug therapy

== ENCOUNTER 2017-09-22 20:21 | Emergency (ER) | payer SELFPAY, OTHER | END 2017-09-23 00:41 | disposition left against medical advice (07) | LOC: M ED 20:21 | DX: Z53.21 Procedure and treatment not carried out due to patient leaving prior to being seen by health care provider (principal) ==

== ENCOUNTER 2018-09-26 16:24 | Emergency (ER) | payer SELFPAY ==
[~2018-09-26] VITALS: Ht 154.9 cm; Wt 74.1 kg
[~2018-09-26 16:24] MED LIST changes: +ACET30TAB PO; +NAPR-885 PO; +ROBA750T4 PO; +VALI5TAB PO
[2018-09-26] MEDS ORDERED: METHOCARBAMOL 750 MG TAB PO ONE (17:30)
[2018-09-26] MEDS ORDERED: KETOROLAC 60 MG/2 ML VIAL (J1885) IM ONE (17:30)
[2018-09-26] MEDS ORDERED: BACL10TA2 PO (17:56)
[2018-09-26 18:02] VITALS: BP 132/72
== END 2018-09-26 18:08 | disposition home or self-care (01) ==
LOC: M ED 16:24
DX: S29.012A Strain of muscle and tendon of back wall of thorax, initial encounter (principal); S39.012A Strain of muscle, fascia and tendon of lower back, initial encounter; X58.XXXA Exposure to other specified factors, initial encounter; Y92.89 Other specified places as the place of occurrence of the external cause; F41.9 Anxiety disorder, unspecified; F33.9 Major depressive disorder, recurrent, unspecified
CPT/HCPCS: 96372; 99283; J1885

== ENCOUNTER → 2018-12-02 | Outpatient (REF) | payer OTHER ==
[~2018-12-02] MED LIST changes: +BACL10TA2 PO
[2018-12-03 13:35] LABS: CHLAMYDIA DNA AMPLIFICATION NEGATIVE (NEGATIVE); GC DNA AMPLIFICATION NEGATIVE (NEGATIVE)
== END ==
LOC: M LAB REF 10:43
PROVIDERS: ATTEND Physician Assistant
DX: N30.01 Acute cystitis with hematuria (principal)